=== PATIENT | female | born 2000 | race Two or more races ===

== ENCOUNTER → 2024-09-27 | Outpatient (REF) | payer OTHER | LOC: M SFHCWAGY 13:07 | PROVIDERS: ATTEND Obstetrics & Gynecology | DX: Z36.85 Encounter for antenatal screening for Streptococcus B (principal); Z3A.36 36 weeks gestation of pregnancy ==

== ENCOUNTER 2024-10-08 02:16 | Inpatient (IN) | payer OTHER ==
[~2024-10-08] VITALS: Ht 152.4 cm; Wt 66.9 kg
[2024-10-08] VITALS (49 sets, daily range): BP systolic 89–139; BP diastolic 48–88; O2SAT 99
[2024-10-08] MEDS ORDERED: PRENTAB9 PO (02:33)
[2024-10-08] MEDS ORDERED: HOME MED LIST COMPLETE! XX SCH (02:35)
[2024-10-08] MEDS ORDERED: LIDOCAINE 1% MDV 20ML VIAL INFIL PRN (03:05)
[2024-10-08] MEDS ORDERED: METHYLERGONOVINE MALEATE 0.2MG/ML 1ML VIAL IM PRN (03:05)
[2024-10-08] MEDS ORDERED: CARBOPROST TROMETHAMINE 250 MCG/ML AMP IM PRN (03:05)
[2024-10-08] MEDS ORDERED: OXYTOCIN DRIP 30 UNITS in IV 1 EA IV PRN (03:05)
[2024-10-08] MEDS: LACTATED RINGER'S 1000 ML IV STA (03:32)
[2024-10-08 04:03] LABS: BASO % 0.2 % (0.0-1.0); EOS % 0.2 % (0.0-3.0); HEMATOCRIT 31.5 % (36.0-47.0); HEMOGLOBIN 10.6 g/dl (12.0-15.5); LYMPH # 1.6 10^3/uL (1.5-5.0); LYMPH % 18.7 % (24.0-44.0); MEAN CORPUSCULAR HEMOGLOBIN 31.1 pg (27.0-33.0); MEAN CORPUSCULAR HGB CONC 33.7 g/dl (32.0-36.5); MEAN CORPUSCULAR VOLUME 92.4 fl (80.0-96.0); MONO # 0.5 10^3/uL (0.0-0.8); NEUTROPHILS # 6.6 10^3/uL (1.5-8.5); NEUTROPHILS % 74.7 % (36.0-66.0); PLATELET COUNT, AUTOMATED 252 10^3/uL (150-450); RED BLOOD COUNT 3.41 10^6/uL (4.00-5.40); WHITE BLOOD COUNT 8.8 10^3/uL (4.0-10.0)
[2024-10-08] MEDS ORDERED: EPIDURAL/PCA KEYS XX PRN (04:45)
[2024-10-08] MEDS ORDERED: LR 500 ML IV PRN (04:45)
[2024-10-08] MEDS ORDERED: diphenhydrAMINE 50MG/ML VIAL IV PRN (04:45)
[2024-10-08] MEDS ORDERED: ONDANSETRON 4MG 2ML VIAL IV PRN ×2 (04:45→15:30)
[2024-10-08] MEDS ORDERED: NALOXONE INJ 0.4MG/1ML VIAL IV PRN (04:45)
[2024-10-08] MEDS: FENTANYL/ROPIVACAINE/NACL BAG 100 ML EPIDURAL SCH (04:51)
[2024-10-08] MEDS: LR 1,000 ML IV SCH (04:51)
[2024-10-08 04:55] LABS: HIV 1&2 SCREEN NEGATIVE (NEGATIVE)
[2024-10-08] MEDS: ePHEDrine SULFATE 25 MG/5 ML(5MG/ML) SYRINGE IVP PRN (07:22)
[2024-10-08] MEDS: OXYTOCIN DRIP 30 UNITS in IV 1 EA IV SCH (13:13)
[2024-10-08] MEDS: TRANEXAMIC ACID INJection 1,000 MG in NS 100 ML IV PRN (15:10)
[2024-10-08] MEDS: OXYTOCIN DRIP 30 UNITS in IV 1 EA IV PRN (15:10)
[2024-10-08 15:20] LABS: CORD GAS ABE A -12.8; CORD GAS ABE V -10.1; CORD GAS HCO3 A 18.1 MMOL/L; CORD GAS O2 SAT A 55.2 %; CORD GAS O2 SAT V 48.1 %; CORD GAS PCO2 A 60.9 mmHg; CORD GAS PCO2 V 53.5 mmHg; CORD GAS PH A 7.09 UNITS; CORD GAS PH V 7.169 UNITS; CORD GAS PO2 A 29.9 mmHg; CORD GAS PO2 V 24.3 mmHg; CORD GAS SBC V 15.6 MMOL/L; CORD GAS TCO2 A 19.9 MMOL/L; CORD GAS TCO2 V 20.7 MMOL/L
[2024-10-08] MEDS ORDERED: ACETAMINOPHEN 325 MG TAB PO PRN (15:30)
[2024-10-08] MEDS ORDERED: RHOGAM 300MCG (1500IU) INJ IM SCH (15:30)
[2024-10-08] MEDS ORDERED: METHYLERGONOVINE MALEATE 0.2 MG TAB PO PRN (15:30)
[2024-10-08] MEDS ORDERED: DIBUCAINE 1% OINTMENT 30GM TOP PRN (15:30)
[2024-10-08] MEDS ORDERED: IBUPROFEN 600MG TAB PO PRN (15:30)
[2024-10-08] MEDS ORDERED: DOCUSATE SODIUM 100MG CAPSULE PO PRN (15:30)
[2024-10-08] MEDS ORDERED: IBUPROFEN 800 MG TAB PO PRN (15:30)
[2024-10-08] MEDS: ACETAMINOPHEN 500 MG TAB PO PRN (15:58)
[2024-10-09 05:59] VITALS: BP 121/62; O2SAT 99
[2024-10-09] MEDS: PRENATAL VITAMINS CHEWABLE TABLET PO SCH (07:19)
[2024-10-09 18:00] VITALS: BP 113/69; O2SAT 99
[2024-10-10 06:00] VITALS: BP 103/73; O2SAT 98
[2024-10-10] MEDS ORDERED: MEASLES,MUMPS,RUBELLA VACCINE INJ (MMR-II) SC.IMMUN ONE (09:00)
[2024-10-10 18:00] VITALS: BP 123/72; O2SAT 99
== END 2024-10-10 18:45 | disposition home or self-care (01) | DRG 807 ==
LOC: M LDO 02:16 → M LDI 03:05 → M OBS 17:15
PROVIDERS: ADMIT Obstetrics & Gynecology; ATTEND Obstetrics & Gynecology
PROC: 10E0XZZ Delivery of Products of Conception, External Approach (ICD-10-PCS; principal; 2024-10-08)
PROC: 0HQ8XZZ Repair Buttock Skin, External Approach (ICD-10-PCS; 2024-10-08)
DX: O32.6XX0 Maternal care for compound presentation, not applicable or unspecified (principal); Z37.0 Single live birth; Z3A.37 37 weeks gestation of pregnancy; O70.0 First degree perineal laceration during delivery